=== PATIENT | female | born 1955 | race Caucasian/White ===

== ENCOUNTER → 2016-11-17 | Outpatient (CLI) | payer BC ==
[~2016-11-17] MED LIST: ASPCH81X PO; BIOT1CAP8 PO; CALC600T9 PO; CETI10TA10 PO; DILT-113 PO; ESTCR TOP; FLUO1TAB12 PO; LEVO25TA5 PO; MAGN1CAP2 PO; OMEG10007 PO; RIVA1TAB4 PO; SPR25 PO; TMB100 PO; TRET0.0522 TOP
[2016-11-25 14:19] LABS: ALTERNARIA CLASS 0; ALTERNARIA IGE <0.10 KU/L; ASPERG FUMIG CLASS 0; ASPERG FUMIG IGE <0.10 KU/L; BAHIA GRASS ASM CLASS 0/1; BAHIA GRASS IGE 0.17 KU/L; BERMUDA GRASS CLASS 0; BERMUDA GRASS IGE <0.10 KU/L; BIRCH CLASS 1; BLACK LOCUST CLASS 0; BLACK LOCUST IGE <0.35 kU/L (<0.35); CAT DANDER CLASS 0; CLADOSPORIUM HER CLASS 0; CLADOSPORIUM HER IGE <0.10 KU/L; COCKROACH CLASS 0; D. FARINAE CLASS 0; D. FARINAE IGE <0.10 KU/L; D. PTERONYSSINUS CLASS 0; D. PTERONYSSINUS IGE <0.10 KU/L; DOG DANDER CLASS 0; EGG MIX CLASS 0; EGG MIX IGE <0.10 KU/L; ELM CLASS 0; ENGLISH PLAN CLASS 0; ENGLISH PLAN IGE <0.10 KU/L; JOHNSON CLASS 0; JOHNSON IGE <0.10 KU/L; JUNE (KENTUCKY BLUE) CLASS 2; JUNE IGE 1.03 KU/L; LATEX CLASS 0; LATEX k UNITS/ML <0.10 KU/L; MAPLE (BOX ELDER) IGE <0.10 KU/L; MAPLE CLASS 0; MOUNTAIN CEDAR ASM CLASS 0; MOUNTAIN CEDAR IGE <0.10 KU/L; MUCOR CLASS 0; MUCOR IGE <0.10 KU/L; NETTLE CLASS 0; NETTLE IGE <0.10 KU/L; PENIC NOTATUM CLASS 0; PENIC NOTATUM IGE <0.10 KU/L; ROUGH PIGWEED CLASS 0; ROUGH PIGWEED IGE <0.10 KU/L; SHORT RAGWEED CLASS 0/1; SHORT RAGWEED IGE 0.32 KU/L; STEMPHY BOTRY CLASS 0; STEMPHY BOTRY IGE <0.10 KU/L; WHITE HICKORY ASM CLASS 0; WHITE HICKORY IGE <0.10 kU/L (<0.35); WHITE MULBERRY CLASS 0; WHITE MULBERRY IGE <0.10 KU/L
== END | disposition home or self-care (01) ==
LOC: C.LAB1850 10:39
PROVIDERS: ATTEND Internal Medicine Pulmonary Disease
DX: J30.9 Allergic rhinitis, unspecified (principal); Z88.7 Allergy status to serum and vaccine

== ENCOUNTER → 2016-11-19 | Outpatient (CLI) | payer BC ==
[2016-11-19 17:58] LABS: THYROID STIMULATING HORMONE 2.36 uIu/ml (0.300-4.500)
== END | disposition home or self-care (01) ==
LOC: C.LAB1850 16:19
PROVIDERS: ATTEND Internal Medicine Endocrinology, Diabetes & Metabolism
DX: E03.9 Hypothyroidism, unspecified (principal)

== ENCOUNTER 2017-04-14 10:31 | Inpatient (IN) | payer BC ==
[~2017-04-14] VITALS: Ht 165.1 cm; Wt 64.6 kg
[2017-04-14] VITALS (8 sets, daily range): BP systolic 88–128; BP diastolic 50–84; PULSE 53–115; TEMP 36.7–36.8; O2SAT 96–99; Ht 165.1 cm; Wt 64.6 kg
[~2017-04-14 10:31] MED LIST changes: -RIVA1TAB4 PO; -TMB100 PO; +TRET-55 TOP; -TRET0.0522 TOP
[2017-04-14] MEDS ORDERED: SODIUM CHLORIDE 0.9% 1000ML 1,000 ML IV STA ×2 (11:18→15:43)
[2017-04-14] MEDS ORDERED: DILTIAZEM HCL 5 MG/ML 5 ML VIAL IV STA ×2 (11:18→12:33)
--- NOTE | 2017-04-14 11:22 | EMERGENCY ROOM VISIT NOTE ---
History First contact with patient: 11:03 Chief Complaint: RAPID HEART RATE Stated Complaint: A-FIB Nursing Triage Summary: Patient c/o rapid heart rate that started this morning. Patient states became bradycardic this morning and almost passed out. History of Present Illness The patient is a 61 year old female who presents to the Emergency Room with complaints of irregular heartbeat. The patient reports a long-standing history of atrial fibrillation. She has had cardioversion and ablation 2. The patient states that this is the second time in 3 months that she has gone into A. fib. The patient states that it has been 36 hours since she felt her heart go into atrial fibrillation. She states that she has been very fatigued and short of breath. She states that she has also felt a pressure sensation into her neck. She states she has had several near syncopal episodes and several dizzy episodes. She states she has also had diarrhea with episodes of dizziness. She states that this morning she noticed an episode of her heart rate becoming very slow. She denies any true pain. She does have a history of hypothyroidism and takes levothyroxine. She has had a stress test over 10 years ago. She denies any earache, sore throat, cough, fever. She denies any abdominal pain or vomiting. She denies any extremity pain or swelling. Review of Systems A 10 system review of systems was completed with positives and pertinent negatives listed in the HPI. Past Medical/Surgical History Medical Problems: (1) Atrial fibrillation with RVR (2) Fungal toenail infection Family History Cancer Heart disease Social History Smoking Status: Never Smoker Drug Use: none Marital Status: Occupation Status: employed Current/Historical Medications Scheduled Aspirin (Aspirin Chewable), 81 MG PO QAM Biotin (Biotin), 1 CAP PO QAM Calcium Carbonate-Vitamin D (Calcium + D), 1 TAB PO QPM Cetirizine Hcl (Zyrtec), 10 MG PO QAM Diltiazem Hcl Ext Rel (Tiazac), 180 MG PO QAM Estradiol Vaginal (Estrace), 0.25 APPL TOP 2XWK Fish Oil ([place]-3), 1 CAP PO QAM Fluoxetine Hcl (Fluoxetine Hcl), 10 MG PO QPM Levothyroxine Sodium (Levothyroxine Sodium), 50 MCG PO DAILY Magnesium Oxide (Mg Supplement (Magnesium), 1 TAB PO DAILY Tretinoin (Tretinoin), 1 APPLN TOP HS Scheduled PRN Spironolactone (Spironolactone), 25 MG PO DAILY PRN for edema Allergies Coded Allergies: Flu Virus Vaccine (Verified Allergy, Unknown, THROAT SWELLING, 04/14/17) Ketamine (Verified Adverse Reaction, Intermediate, HALLUCINATIONS, NAUSEA , VOMITING, 04/14/17) PER JESSICA MAR Physical Exam Vital Signs Date Time Temp Pulse Resp B/P (MAP) Pulse Ox O2 Delivery O2 Flow Rate FiO2 04/14/17 14:02 106 20 94/78 97 Room Air 04/14/17 12:14 118 16 109/80 99 Room Air 04/14/17 11:44 119 04/14/17 11:01 100 Room Air 04/14/17 10:49 36.4 120 17 128/77 99 Room Air Physical Exam VITALS: Vitals are noted on the nurse's note and reviewed by myself. Vital signs stable. The patient is afebrile. She is tachycardic with heart rate 120 bpm. GENERAL: This is a 61-year-old female, in no acute distress, nondiaphoretic, well-developed well-nourished. SKIN: The skin was without rashes, erythema, edema, or bruising. There is no tenting of the skin. Capillary reflex less than 2 seconds. HEAD: Normocephalic atraumatic. EARS: The external ears are normal in appearance. EYES: Pupils equal round and reactive to light and accommodation. Conjunctivae without injection, sclerae without icterus. Extraocular movements intact. NOSE: Patent, turbinates without inflammation or discharge. MOUTH: Mucous membranes moist. Tonsils are not enlarged. Pharynx without erythema or exudate. Uvula midline. Airway patent. Tongue does not deviate. NECK: Supple without nuchal rigidity. No JVD. HEART: Fast rate, irregularly irregular. LUNGS: Clear to auscultation bilaterally without wheezes, rales or rhonchi. No retractions or accessory muscle use. ABDOMEN: Positive bowel sounds x 4. Soft, nontender, without masses or organomegaly. Hay sign negative. MUSCULOSKELETAL: No muscle atrophy, erythema, or edema noted. Full range of motion without joint tenderness in all extremities. No tenderness to palpation. Normal gait. Strength 5/5 throughout. NEURO: Patient was alert and oriented to person place and time. No focal neurological deficits. Medical Decision & Procedures ER Provider Diagnostic Interpretation: CHEST ONE VIEW PORTABLE CLINICAL HISTORY: palpitations cardiac arrhythmia COMPARISON STUDY: 03/25/2016 FINDINGS: The bones soft tissues and hemidiaphragms are normal. The cardiomediastinal silhouette is normal. The lungs are clear. The pulmonary vasculature is normal. IMPRESSION: Negative chest. Laboratory Results 04/14/17 11:05 Red Blood Count 5.20, Mean Corpuscular Volume 91.9, Mean Corpuscular Hemoglobin 31.2, Mean Corpuscular Hemoglobin Concent 33.9, Mean Platelet Volume 9.7, Neutrophils (%) (Auto) 69.8, Lymphocytes (%) (Auto) 20.9, Monocytes (%) (Auto) 8.2, Eosinophils (%) (Auto) 0.4, Basophils (%) (Auto) 0.4, Neutrophils # (Auto) 4.87, Lymphocytes # (Auto) 1.46, Monocytes # (Auto) 0.57, Eosinophils # (Auto) 0.03, Basophils # (Auto) 0.03 04/14/17 11:05 Test 04/14/17 11:05 04/14/17 12:45 White Blood Count 6.98 K/uL (4.8-10.8) Red Blood Count 5.20 M/uL (4.2-5.4) Hemoglobin 16.2 g/dL (12.0-16.0) Hematocrit 47.8 % (37-47) Mean Corpuscular Volume 91.9 fL (80-100) Mean Corpuscular Hemoglobin 31.2 pg (25-34) Mean Corpuscular Hemoglobin Concent 33.9 g/dl (32-36) Platelet Count 241 K/uL (130-400) Mean Platelet Volume 9.7 fL (7.4-10.4) Neutrophils (%) (Auto) 69.8 % Lymphocytes (%) (Auto) 20.9 % Monocytes (%) (Auto) 8.2 % Eosinophils (%) (Auto) 0.4 % Basophils (%) (Auto) 0.4 % Neutrophils # (Auto) 4.87 K/uL (1.4-6.5) Lymphocytes # (Auto) 1.46 K/uL (1.2-3.4) Monocytes # (Auto) 0.57 K/uL (0.11-0.59) Eosinophils # (Auto) 0.03 K/uL (0-0.5) Basophils # (Auto) 0.03 K/uL (0-0.2) RDW Standard Deviation 46.0 fL (36.4-46.3) RDW Coefficient of Variation 13.6 % (11.5-14.5) Immature Granulocyte % (Auto) 0.3 % Immature Granulocyte # (Auto) 0.02 K/uL (0.00-0.02) Prothrombin Time 11.6 SECONDS (9.0-12.0) Prothromb Time International Ratio 1.1 (0.9-1.1) Activated Partial Thromboplast Time 30.3 SECONDS (21.0-31.0) Partial Thromboplastin Ratio 1.2 Anion Gap 6.0 mmol/L (3-11) Est Creatinine Clear Calc Drug Dose 61.0 ml/min Estimated GFR () 83.9 Estimated GFR (Non- 72.4 BUN/Creatinine Ratio 22.7 (10-20) Calcium Level 9.6 mg/dl (8.5-10.1) Phosphorus Level 2.9 mg/dl (2.5-4.9) Magnesium Level 2.5 mg/dl (1.8-2.4) Total Bilirubin 0.4 mg/dl (0.2-1) Aspartate Amino Transf (AST/SGOT) 23 U/L (15-37) Alanine Aminotransferase (ALT/SGPT) 36 U/L (12-78) Alkaline Phosphatase 57 U/L (45-117) Total Creatine Kinase 64 U/L (26-192) Creatine Kinase MB 0.7 ng/ml (0.5-3.6) Creatine Kinase MB Ratio 1.1 (0-3.0) Troponin I < 0.015 ng/ml (0-0.045) Total Protein 7.6 gm/dl (6.4-8.2) Albumin 4.2 gm/dl (3.4-5.0) Globulin 3.4 gm/dl (2.5-4.0) Albumin/Globulin Ratio 1.2 (0.9-2) Thyroid Stimulating Hormone (TSH) 1.040 uIu/ml (0.300-4.500) Urine Color YELLOW Urine Appearance CLEAR (CLEAR) Urine pH 8.5 (4.5-7.5) Urine Specific [place] 1.012 (1.000-1.030) Urine Protein NEG (NEG) Urine Glucose (UA) NEG (NEG) Urine Ketones NEG (NEG) Urine Occult Blood NEG (NEG) Urine Nitrite NEG (NEG) Urine Bilirubin NEG (NEG) Urine Urobilinogen NEG (NEG) Urine Leukocyte Esterase NEG (NEG) Medications Administered Medications (Trade) Dose Ordered Sig/Camille Route Start Time Stop Time Status Last Admin Dose Admin Diltiazem HCl (Cardizem Inj) 10 mg NOW STAT IV 04/14/17 11:18 04/14/17 11:20 DC 04/14/17 11:32 10 MG Sodium Chloride 1,000 ml @ 999 mls/hr Q1H1M STAT IV 04/14/17 11:18 04/14/17 12:18 DC 04/14/17 11:31 999 MLS/HR Diltiazem HCl (Cardizem Inj) 20 mg NOW STAT IV 04/14/17 12:33 04/14/17 12:35 DC 04/14/17 12:48 20 MG Procedure The patient was monitored on a court manager. This revealed a persistent atrial fibrillation with rapid ventricular response. Her heart rate was anywhere from 110-130 bpm. ECG Indication: palpitations Rate (beats per minute): 118 Rhythm: atrial fibrillation Findings: no acute ischemic change Change: no significant change ED Course The patient was seen and examined. Previous visits were reviewed. The patient does not have fever or leukocytosis. She does not have any significant election light abnormalities. Magnesium is slightly elevated at 2.5. She does take a magnesium supplement. Cardiac enzymes were not elevated. TSH was within normal limits at 1.040. INR was 1.1. Urinalysis was negative. Chest x-ray does not reveal any acute abnormality. The patient was hydrated with normal saline She was given a 10 mg IV dose of Cardizem and the A. fib with RVR persisted She was then given a 20 mg IV dose of Cardizem and the atrial fibrillation with RVR persisted The patient has had refractory paroxysmal atrial fibrillation. She has felt herself in this rhythm for the last 36 hours. She took one dose of Xarelto last night but is not on regular anticoagulation. The patient was given 2 doses of Cardizem with no significant improvement in the right or rhythm. The above workup does not reveal any obvious cause of the atrial fibrillation. She does not seem to have an infectious process. Her TSH is within normal limits. The patient would benefit from further evaluation and management in the hospital. She would like to see Dr. Jean. The case was discussed with the hospitalist service and they will evaluate the patient. The case was discussed with Dr. Alvarado and he agrees with the assessment and treatment plan. Medication Reconciliation: I attest that I have personally reviewed the patient' s current medication list. Blood pressure screening: The patient was found to have normal blood pressure on screening and does not require follow-up Medical Decision DIFFERENTIAL DIAGNOSIS: Aortic dissection, myocarditis, pericarditis, cervical disc disease, costochondritis, herpes zoster, rib fracture, pleuritis, pneumonia , pulmonary embolus, tension pneumothorax, anxiety disorder, somatoform disorder , choledocholithiasis, status, esophagitis, esophageal spasm, esophageal reflux , esophageal rupture, pancreatitis, peptic ulcer disease, cardiac ischemia, ST elevation NE, acute coronary syndrome, arrhythmia, coronary artery vasospasm. vavular heart disease, coronary artery disease, among others. Impression Primary Impression: Atrial fibrillation with RVR Critical Care I have personally spent greater than 35 minutes of critical care time in the direct management of this patient. This includes bedside care, interpretation of diagnostic studies, and testing, discussion with consultants, patient, and family members, and other required patient management activities. This 30 minutes is in excess of all separately billable procedures. Departure Information Dispostion Admitted as an inpatient Condition FAIR Referrals Krissy Coronel M.D. (PCP) Patient Instructions [facility]
[2017-04-14 11:23] LABS: BASO % 0.4 %; BASO ABS # 0.03 K/uL (0-0.2); COMPLETE YES; EOS % 0.4 %; HEMATOCRIT 47.8 % (37-47); IG% 0.3 %; LYMPH % 20.9 %; LYMPH ABS # 1.46 K/uL (1.2-3.4); MEAN CELL VOLUME 91.9 fL (80-100); MEAN CORPUSCULAR HEMOGLOBIN 31.2 pg (25-34); MEAN CORPUSCULAR HGB CONC 33.9 g/dl (32-36); MEAN PLATELET VOLUME 9.7 fL (7.4-10.4); MONO % 8.2 %; NEUT % 69.8 %; PLATELET COUNT 241 K/uL (130-400); WHITE BLOOD COUNT 6.98 K/uL (4.8-10.8)
[2017-04-14 11:30] LABS: INR 1.1 (0.9-1.1); PARTIAL THROMBOPLASTIN RATIO 1.2; PROTHROMBIN TIME (PATIENT) 11.6 SECONDS (9.0-12.0)
[2017-04-14 11:32] LABS: ALT/SGPT 36 U/L (12-78); AST/SGOT 23 U/L (15-37); BLOOD UREA NITROGEN 19 mg/dl (7-18); BUN/CREATININE RATIO 22.7 (10-20); CALCIUM 9.6 mg/dl (8.5-10.1); CARBON DIOXIDE 29 mmol/L (21-32); CHLORIDE 106 mmol/L (98-107); CREATININE 0.86 mg/dl (0.60-1.20); GLUCOSE 97 mg/dl (70-99); MAGNESIUM 2.5 mg/dl (1.8-2.4); POTASSIUM 4.2 mmol/L (3.5-5.1); SODIUM 141 mmol/L (136-145)
[2017-04-14 11:43] LABS: ALB/GLOB RATIO 1.2 (0.9-2); ALKALINE PHOSPHATASE 57 U/L (45-117); CKMB/CK RATIO 1.1 (0-3.0)
--- NOTE | 2017-04-14 12:15 | DIAGNOSTIC IMAGING REPORT ---
CHEST ONE VIEW PORTABLE CLINICAL HISTORY: palpitations cardiac arrhythmia COMPARISON STUDY: 03/25/2016 FINDINGS: The bones soft tissues and hemidiaphragms are normal. The cardiomediastinal silhouette is normal. The lungs are clear. The pulmonary vasculature is normal. IMPRESSION: Negative chest. Electronically signed by: Gadiel Jorgensen M.D. 04/14/2017 12:13 PM Dictated Date/Time: 04/14/2017 12:13 PM
[2017-04-14] MEDS ORDERED: ONDANSETRON INJ 2 MG/ML 2 ML VIAL IV PRN (14:00)
[2017-04-14] MEDS ORDERED: MAGNESIUM HYDROXIDE SUSP 30 ML UDC PO PRN (14:00)
[2017-04-14] MEDS ORDERED: ALUMINUM/MAGNESIUM/SIMETH (MAALOX MAX) 30 ML UDC PO PRN (14:00)
[2017-04-14] MEDS ORDERED: POLYETHYLENE (MIRALAX) 17 GM PACK PO PRN (14:00)
[2017-04-14] MEDS ORDERED: NITROGLYCERIN 0.4 MG SL PER TAB CHARGE SL PRN (14:00)
[2017-04-14] MEDS ORDERED: ENOXAPARIN 30 MG/0.3 ML SYR SC SCH (14:00)
[2017-04-14] MEDS ORDERED: ACETAMINOPHEN 325 MG TAB PO PRN (14:00)
[2017-04-14] MEDS ORDERED: MoRPHine SULFATE 2 MG/ML CARP IV PRN (14:00)
[2017-04-14] MEDS ORDERED: DILTIAZEM BOLUS / DRIP IV STA (14:08)
[2017-04-14] MEDS ORDERED: METOPROLOL TARTRATE 1 MG/ML VIAL IV STA (14:08)
[2017-04-14 14:11] LABS: URINE APPEARANCE CLEAR (CLEAR); URINE BILIRUBIN NEG (NEG); URINE COLOR YELLOW; URINE NITRITE NEG (NEG); URINE PH 8.5 (4.5-7.5); URINE SPECIFIC GRAVITY 1.012 (1.000-1.030); UROBILINOGEN NEG (NEG); ZZUR CULT IF INDIC CLEAN CATCH NO
[2017-04-14] MEDS ORDERED: ESTRADIOL TOP SCH (14:15)
[2017-04-14] MEDS ORDERED: SPIRONOLACTONE 25 MG TAB PO PRN (14:15)
[2017-04-14 14:27] LABS: MANUAL MICROSCOPIC REQUIRED? NO; REVIEW REQ? NO
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
[2017-04-14] MEDS ORDERED: DILTIAZEM HCL INJ 125 MG in DEXTROSE 5% 100ML IV PRN (15:00)
[2017-04-14] MEDS ORDERED: METOPROLOL TARTRATE 1 MG/ML VIAL ONE (17:19)
[2017-04-14] MEDS: FLUOXETINE HCL 10 MG CAP PO SCH (20:00)
[2017-04-14] MEDS: CALCIUM 600MG + VIT D 400 IU TAB PO SCH (20:01)
[2017-04-14] MEDS: HEPARIN 25,000 UNIT/500ML D5W 500 ML IV PRN (20:52)
[2017-04-14] MEDS ORDERED: HEPARIN IV BOLUS 5,000 UNIT in SYRINGE 0 ML IV ONE (21:00)
[2017-04-14] MEDS ORDERED: METOPROLOL TARTRATE 25 MG TAB PO ONE (21:00)
[2017-04-15] VITALS (17 sets, daily range): BP systolic 73–105; BP diastolic 49–68; PULSE 61–123; TEMP 36.5–36.9; O2SAT 85–97
[2017-04-15] MEDS: SODIUM CHLORIDE 0.9% 1000ML 1,000 ML IV SCH ×2 (03:36→15:42)
[2017-04-15 03:42] LABS: BASO % 0.3 %; BASO ABS # 0.02 K/uL (0-0.2); COMPLETE YES; EOS % 2.3 %; HEMATOCRIT 40.7 % (37-47); IG% 0.2 %; LYMPH % 43.7 %; LYMPH ABS # 2.84 K/uL (1.2-3.4); MEAN CELL VOLUME 93.3 fL (80-100); MEAN CORPUSCULAR HEMOGLOBIN 30.3 pg (25-34); MEAN CORPUSCULAR HGB CONC 32.4 g/dl (32-36); MEAN PLATELET VOLUME 9.4 fL (7.4-10.4); MONO % 7.7 %; NEUT % 45.8 %; PLATELET COUNT 209 K/uL (130-400); RED BLOOD COUNT 4.36 M/uL (4.2-5.4)
[2017-04-15 04:02] LABS: CREATININE 0.72 mg/dl (0.60-1.20); MAGNESIUM 2.1 mg/dl (1.8-2.4); POTASSIUM 4.1 mmol/L (3.5-5.1)
[2017-04-15 04:05] LABS: PARTIAL THROMBOPLASTIN RATIO 3.7
[2017-04-15 04:12] LABS: PHOSPHORUS 3.8 mg/dl (2.5-4.9)
[2017-04-15] MEDS: LEVOTHYROXINE 50 MCG TAB PO SCH (05:35)
[2017-04-15] MEDS: HEPARIN 25,000 UNIT/500ML D5W 500 ML IV PRN ×2 (05:39→23:05)
[2017-04-15] MEDS: CETIRIZINE HCL 10 MG TAB PO SCH (08:10)
[2017-04-15] MEDS: METOPROLOL TARTRATE 25 MG TAB PO SCH ×2 (08:10→21:35)
[2017-04-15] MEDS ORDERED: ASPIRIN 81 MG ECTAB PO SCH (09:00)
[2017-04-15] MEDS ORDERED: MAGNESIUM OXIDE PO SCH (09:00)
--- NOTE | 2017-04-15 11:03 | Progress Note ---
Subjective Date of Service: Apr 15, 2017. Subjective Pt evaluation today including: conversation w/ patient, physical exam, chart review, lab review, review of studies, review of inpatient medication list Voiding: no voiding problems Still feeling racing heart Denied chest pain no other complaining Problem List Medical Problems: (1) Rapid atrial fibrillation Status: Acute Review of Systems Constitutional: No fever, No chills, No sweats, No weight loss, No weakness, No fatigue, No problem reported Eyes: No worsening of vision, No eye pain, No redness, No discharge, No diplopia ENT: No hearing loss, No unusual epistaxis, No nasal symptoms, No sore throat, No tinnitus, No dental problems, No trouble swallowing Respiratory: No cough, No sputum, No wheezing, No shortness of breath, No dyspnea on exertion, No dyspnea at rest, No hemoptysis Cardiac: + palpitations, No chest pain, No orthopnea, No PND, No edema, No claudication Abdomen: No pain, No nausea, No vomiting, No diarrhea, No constipation Musculoskeletal: No joint pain, No muscle pain, No swelling, No calf pain Female : No dysuria, No urinary frequency, No hematuria, No incontinence, No abnormal vaginal bleeding, No vaginal discharge Neurologic: No memory loss, No paralysis, No weakness, No numbness/tingling, No vertigo, No balance problems Psychiatric: No depression symptoms, No anhedonism, No anxiety, No insomnia, No substance abuse Heme: No abnormal bleeding/bruising, No clotting problems, No swollen lymph nodes, No night sweats Endo: No fatigue, No excessive thirst, No excessive urination Skin: No rash, No itch, No new/changing skin lesions, No color change, No bleeding Objective Vital Signs Date Time Temp Pulse Resp B/P (MAP) Pulse Ox O2 Delivery O2 Flow Rate FiO2 04/15/17 10:17 78 18 92/59 (70) 95 Room Air 04/15/17 09:45 85 18 92/58 (69) 85 Room Air 04/15/17 09:30 36.5 97 20 96/60 (72) 94 04/15/17 09:15 99 100/55 (70) 96 04/15/17 09:00 95 100/64 (76) 97 04/15/17 08:45 105 101/60 (74) 97 04/15/17 08:00 94 Room Air 04/15/17 07:05 36.5 120 19 100/68 (79) 95 Room Air 04/15/17 04:56 Room Air 04/15/17 04:27 36.8 117 18 105/67 (80) 96 Room Air 04/15/17 00:58 114 101/67 (78) 04/15/17 00:01 Room Air 04/14/17 23:43 36.7 72 18 93/57 (69) 96 Room Air 04/14/17 21:50 53 95/57 (70) 04/14/17 21:35 60 93/60 (71) 04/14/17 21:20 62 99/64 (76) 04/14/17 20:58 59 88/50 (63) 04/14/17 20:00 Room Air 04/14/17 19:23 36.8 109 18 120/84 (96) 96 04/14/17 18:14 36.8 115 18 128/81 (97) 99 Room Air 04/14/17 18:06 116 16 112/84 97 04/14/17 17:39 119 116/84 04/14/17 17:15 119 16 116/84 99 Room Air 04/14/17 16:04 120 18 107/79 98 Room Air 04/14/17 14:30 119 17 92/76 98 Room Air 04/14/17 14:30 98 Room Air 04/14/17 14:02 106 20 94/78 97 Room Air 04/14/17 12:14 118 16 109/80 99 Room Air 04/14/17 11:44 119 Physical Exam General Appearance: WD/WN, no apparent distress Eyes: normal inspection, PERRL, EOMI, sclerae normal ENT: normal ENT inspection, hearing grossly normal, pharynx normal Neck: supple, no adenopathy, thyroid normal, no JVD, no carotid bruits, trachea midline Respiratory/Chest: chest non-tender, normal breath sounds, no respiratory distress, no accessory muscle use, + decreased breath sounds Cardiovascular: no edema, no gallop, no JVD, no murmur, + irregularly irregular (heart rate at 110) Abdomen: normal bowel sounds, non tender, soft, no organomegaly, no pulsatile mass Extremities: normal range of motion, non-tender, normal inspection, no pedal edema, no calf tenderness, normal capillary refill, pelvis stable Neurologic/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: 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, no motor/sensory deficits, alert, normal mood/affect, oriented x 3, + abnormal cerebellar tests Skin: normal color, warm/dry, no rash Lymphatic: no adenopathy Laboratory Results Last 24 Hours Test 04/14/17 11:05 04/14/17 12:45 04/15/17 03:17 White Blood Count 6.98 K/uL 6.50 K/uL Red Blood Count 5.20 M/uL 4.36 M/uL Hemoglobin 16.2 g/dL 13.2 g/dL Hematocrit 47.8 % 40.7 % Mean Corpuscular Volume 91.9 fL 93.3 fL Mean Corpuscular Hemoglobin 31.2 pg 30.3 pg Mean Corpuscular Hemoglobin Concent 33.9 g/dl 32.4 g/dl Platelet Count 241 K/uL 209 K/uL Mean Platelet Volume 9.7 fL 9.4 fL Neutrophils (%) (Auto) 69.8 % 45.8 % Lymphocytes (%) (Auto) 20.9 % 43.7 % Monocytes (%) (Auto) 8.2 % 7.7 % Eosinophils (%) (Auto) 0.4 % 2.3 % Basophils (%) (Auto) 0.4 % 0.3 % Neutrophils # (Auto) 4.87 K/uL 2.98 K/uL Lymphocytes # (Auto) 1.46 K/uL 2.84 K/uL Monocytes # (Auto) 0.57 K/uL 0.50 K/uL Eosinophils # (Auto) 0.03 K/uL 0.15 K/uL Basophils # (Auto) 0.03 K/uL 0.02 K/uL RDW Standard Deviation 46.0 fL 47.0 fL RDW Coefficient of Variation 13.6 % 13.8 % Immature Granulocyte % (Auto) 0.3 % 0.2 % Immature Granulocyte # (Auto) 0.02 K/uL 0.01 K/uL Prothrombin Time 11.6 SECONDS Prothromb Time International Ratio 1.1 Activated Partial Thromboplast Time 30.3 SECONDS 97.3 SECONDS Partial Thromboplastin Ratio 1.2 3.7 Sodium Level 141 mmol/L 145 mmol/L Potassium Level 4.2 mmol/L 4.1 mmol/L Chloride Level 106 mmol/L 111 mmol/L Carbon Dioxide Level 29 mmol/L 27 mmol/L Anion Gap 6.0 mmol/L 7.0 mmol/L Blood Urea Nitrogen 19 mg/dl 15 mg/dl Creatinine 0.86 mg/dl 0.72 mg/dl Est Creatinine Clear Calc Drug Dose 61.0 ml/min 72.9 ml/min Estimated GFR () 83.9 104.0 Estimated GFR (Non- 72.4 89.8 BUN/Creatinine Ratio 22.7 21.0 Random Glucose 97 mg/dl 87 mg/dl Calcium Level 9.6 mg/dl 9.0 mg/dl Phosphorus Level 2.9 mg/dl 3.8 mg/dl Magnesium Level 2.5 mg/dl 2.1 mg/dl Total Bilirubin 0.4 mg/dl Aspartate Amino Transf (AST/SGOT) 23 U/L Alanine Aminotransferase (ALT/SGPT) 36 U/L Alkaline Phosphatase 57 U/L Total Creatine Kinase 64 U/L Creatine Kinase MB 0.7 ng/ml Creatine Kinase MB Ratio 1.1 Troponin I < 0.015 ng/ml Total Protein 7.6 gm/dl Albumin 4.2 gm/dl Globulin 3.4 gm/dl Albumin/Globulin Ratio 1.2 Thyroid Stimulating Hormone (TSH) 1.040 uIu/ml Urine Color YELLOW Urine Appearance CLEAR Urine pH 8.5 Urine Specific [place] 1.012 Urine Protein NEG Urine Glucose (UA) NEG Urine Ketones NEG Urine Occult Blood NEG Urine Nitrite NEG Urine Bilirubin NEG Urine Urobilinogen NEG Urine Leukocyte Esterase NEG Assessment and Plan 61 years old female admitted to 04/14/2017 because of recurrent A fib with RVR. Per report , usually happens during sleep. failed previous ablation twice recurrent A Fib A. fib with rapid ventricular response: Stable Cardiac enzyme troponin was negative 1 Continue Cardizem drip Continue heparin drip Follow-up cardiology input Hypothyroidism: TSH was normal Possible clinically suspected NIR, I told her to follow-up with PCP Plan: Continue B fred Continue Cardizem drip continue home meds Follow-up cardiology input GI and DVT prophylaxis Discussed with patient and answered all questions Continued [facility] stay due to: multiple IV medications needed Discharge planning: home
[2017-04-15 11:54] LABS: PARTIAL THROMBOPLASTIN RATIO 2.1
[2017-04-15] MEDS ORDERED: ENOXAPARIN 30 MG/0.3 ML SYR SC SCH (14:00)
--- NOTE | 2017-04-15 20:08 | CARDIOLOGY CONSULTATION ---
DATE OF CONSULTATION: 04/15/2017 REFERRING PHYSICIAN: Francesca Michelle MD CHIEF COMPLAINT: Atrial flutter. HISTORY OF PRESENT ILLNESS: Mrs. Irene Yanez is a 61-year-old woman with a known history of atrial arrhythmia and previously documented to include both atrial fibrillation and atrial flutter. The patient last underwent an ablation for atrial flutter in 2016. Approximately 3 days ago, the patient noticed at 11 p.m. the onset of rapid heartbeat associated with some symptoms of dizziness. She notes that she was in a tachycardia and due to the mild nature of her symptoms monitored herself over the course of the next several hours. Following day, the patient did report for work where she did not feel well. Her symptoms primarily consisted of generalized weakness and a sense of lightheadedness. The patient thought that the rhythm would terminate spontaneously, but the following morning found herself to still be in a tachycardia and presented to [facility] for an additional evaluation. There, she was discovered to have atrial flutter with a rapid ventricular response. The patient was started on diltiazem infusion as well as heparin and [facility] to the [facility]. Over the course of the past 24 hours, the patient's symptoms waxed and waned in severity. This includes symptoms of a tachycardia and mild lightheadedness. The patient does not have symptoms of chest discomfort or breathing difficulty. At the time of the interview, she claims to be comfortable and has not even noticed sense of palpitations. In general, the patient is a healthy individual who is accustomed to routine activity. She participates in exercise at [employer] 2-3 times per week. She has not noticed any significant reduction in her exercise capacity and denies exertional symptoms such as chest pain or dyspnea. She will occasionally have episodes of palpitations and rapid heartbeat. This happens perhaps every few months. During these episodes, she has mild dizziness, but often times the episodes will terminate within the define time. Generally less than 24 hours. PAST MEDICAL HISTORY: 1. Atrial fibrillation. The patient had the onset of palpitations around 2014 and eventually had documented atrial flutter. She also had documented atrial fibrillation. The patient underwent atrial flutter fibrillation in 2014 and again in 2016 after recurrence. 2. Melanoma. 3. Seasonal allergies. 4. Thyroiditis. PAST SURGICAL HISTORY: Includes: 1. Excision of a melanoma and a breast lumpectomy. 2. Tonsillectomy. 3. Vaginal hysterectomy. FAMILY HISTORY: Not consistent with premature coronary disease. 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 She denies significant alcohol use and a lifelong nonsmoker. OUTPATIENT MEDICATIONS: Include diltiazem 180 mg daily, duloxetine, Synthroid, spironolactone and allergies medicines on a p.r.n. basis. MEDICAL ALLERGIES: INCLUDE INFLUENZA VIRUS VACCINE AND KETAMINE. REVIEW OF SYSTEMS: A complete review of systems was performed and the pertinent positives noted in the history of present illness, the remainder being negative. The patient does not report constitutional symptoms recently such as fevers or chills. Allergies appear to be well controlled. She has not had any difficulty with eating or bowel movements. PHYSICAL EXAMINATION: GENERAL: The patient not appearing to have any acute distress. She is a pleasant individual who is alert and oriented. Mood and affect appeared normal. She answered all questions appropriately. VITAL SIGNS: Include blood pressure 95/61 and her pulse is 102. HEENT: Sclerae are anicteric. Pupils are equal, reactive to light and accommodation. Extraocular movements were intact. Palpation of submandibular region did not reveal any significant lymphadenopathy. The carotids are palpable bilaterally. There are no bruits on auscultation. I did not appreciate any jugular venous distention. There was no evidence of thyromegaly. NEUROLOGIC: Examination revealed cranial nerves to be intact. EXTREMITIES: Evaluation of both lungs revealed good air movement. There were no rales, wheezes or rhonchi. She had normal respiratory effort without use of accessory muscles. CARDIAC: Revealed her to be in an irregular rhythm which was also rapid. I do not appreciate any murmurs on examination however and the PMI was not markedly displaced. ABDOMEN: Soft and nontender. EXTREMITIES: Evaluation of both wrists revealed radial pulses that were equal in intensity. There is no evidence of cyanosis or clubbing. Evaluation of lower extremities did not reveal any significant peripheral edema. SKIN: I do not appreciate any rashes on examination today. LABORATORY STUDIES: Included a white cell count of 6.5, hemoglobin of 13.2, a platelet count of 209, sodium is 145, potassium is 4.1, BUN was 15, creatinine was 0.72. Single view chest x-ray was obtained at the time of admission which did not reveal any evidence of acute cardiopulmonary disease. Serial EKGs were also obtained which revealed the patient to be in atrial flutter with a rapid ventricular response. The patient also had a left anterior fascicular block and borderline R-wave progression of precordial leads. ASSESSMENT AND PLAN: Atrial flutter: Has recurrent atrial flutter despite to attempt at a standard cavotricuspid isthmus ablation. The patient is also known to have atrial fibrillation. Currently, she has some symptoms related to mild hypotension and dizziness associated with rapid heartbeat and possibly the diltiazem infusion. Generally speaking, however, the arrhythmia is well tolerated. We did discuss options for treatment to include an additional attempt at ablation to include both cavotricuspid isthmus ablation as well as pulmonary vein isolation. This would represent a more complete option for her given the known history of atrial fibrillation as well. Alternatively, the patient could initiate medical therapy with antiarrhythmic medications. She has normal left ventricular systolic function and no history of coronary disease. Given her structurally normal heart, she seemed to be a reasonable candidate for flecainide as an outpatient. Other options would be sotalol or dofetilide. These will require inpatient administration for several days. At this point, however, the patient will require a cardioversion. We discussed the procedure in detail and degree of her anticoagulation is in question. She did take a Xarelto within 24 hours of onset of her symptoms and heparin infusion was initiated at the time of her presentation. Overall, she appears to be low risk for arrhythmia. However, I cannot be 100% incontinent that she was therapeutically anticoagulated at all points during this episode. Therefore, I think it would be reasonable to perform a TE prior to cardioversion in order to exclude the presence of any thrombosis in left atrial appendage. I described the risks, benefits, alternatives of the procedure to the patient. We will plan on proceeding tomorrow. [facility]
[2017-04-15] MEDS: FLUOXETINE HCL 10 MG CAP PO SCH (21:34)
[2017-04-15] MEDS: CALCIUM 600MG + VIT D 400 IU TAB PO SCH (21:35)
[2017-04-16] VITALS (10 sets, daily range): BP systolic 90–122; BP diastolic 60–82; PULSE 67–122; TEMP 36.4–36.9; O2SAT 95–98
[2017-04-16 04:54] LABS: BASO % 0.6 %; BASO ABS # 0.03 K/uL (0-0.2); COMPLETE YES; EOS % 3.8 %; HEMATOCRIT 39.3 % (37-47); IG% 0.2 %; LYMPH % 44.5 %; LYMPH ABS # 2.13 K/uL (1.2-3.4); MEAN CELL VOLUME 92.9 fL (80-100); MEAN CORPUSCULAR HEMOGLOBIN 30.3 pg (25-34); MEAN CORPUSCULAR HGB CONC 32.6 g/dl (32-36); MEAN PLATELET VOLUME 9.6 fL (7.4-10.4); MONO % 7.5 %; NEUT % 43.4 %; PLATELET COUNT 192 K/uL (130-400); RED BLOOD COUNT 4.23 M/uL (4.2-5.4); WHITE BLOOD COUNT 4.79 K/uL (4.8-10.8)
[2017-04-16 05:15] LABS: BUN/CREATININE RATIO 30.8 (10-20); CREATININE 0.71 mg/dl (0.60-1.20); PARTIAL THROMBOPLASTIN RATIO 2.2; POTASSIUM 3.8 mmol/L (3.5-5.1)
[2017-04-16] MEDS: LEVOTHYROXINE 50 MCG TAB PO SCH (05:42)
[2017-04-16] MEDS: SODIUM CHLORIDE 0.9% 1000ML 1,000 ML IV SCH (05:42)
[2017-04-16] MEDS ORDERED: PROPOFOL IV EMULSION 10 MG/ML 20 ML VIAL IV ONE (07:49)
[2017-04-16] MEDS ORDERED: LIDOCAINE HCL 2% 2 ML VIAL (20MG/ML) ONE (07:50)
--- NOTE | 2017-04-16 08:14 | Anesthesiology Progress Note ---
Anesthesia Post Op Note Date & Time Apr 16, 2017 at 08:14 Vital Signs Pain Intensity: 0 Vital Signs Past 12 Hours Date Time Temp Pulse Resp B/P (MAP) Pulse Ox O2 Delivery O2 Flow Rate FiO2 04/16/17 08:10 72 16 95/60 97 Room Air 04/16/17 08:08 71 16 105/66 97 Nasal Cannula 6 04/16/17 08:06 71 16 90/62 97 Nasal Cannula 6 04/16/17 08:05 117 16 118/82 97 Nasal Cannula 6 04/16/17 08:02 122 18 122/74 (90) 97 Room Air 04/16/17 06:49 36.9 118 14 100/67 95 Room Air 04/16/17 04:00 Room Air 04/16/17 03:36 36.9 118 14 100/67 (78) 95 Room Air 04/16/17 00:00 Room Air 04/15/17 23:19 36.8 120 17 99/63 (75) 94 Room Air 04/15/17 21:30 121 84/58 (67) Notes Mental Status: alert / awake / arousable, participated in evaluation Pt Amnestic to Procedure: Yes Nausea / Vomiting: adequately controlled Pain: adequately controlled Airway Patency, RR, SpO2: stable & adequate BP & HR: stable & adequate Hydration State: stable & adequate Anesthetic Complications: no major complications apparent
--- NOTE | 2017-04-16 08:23 | CARDIOVERSION ---
DATE OF OPERATION: 04/16/2017 PROCEDURE PERFORMED: Electrical cardioversion. 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 Butch Jean. INDICATIONS: Ms. Irene Yanez is a 61-year-old woman with a history of atrial flutter and atrial fibrillation who presented to [facility] with atrial flutter and rapid ventricular response. Based on symptoms associated with the arrhythmia she was felt to be a good candidate for cardioversion. PROCEDURE IN DETAIL: The patient was informed of the risks, benefits and alternatives to the intended procedure. She understood such and wished to proceed. She was taken to the cardiac catheterization suite holding area where she underwent a general anesthetic administered by the anesthesiology service. Once appropriately anesthetized the patient underwent cardioversion using 30 joules delivered in a biphasic fashion. This returned her to sinus rhythm. Subsequent to the procedure the patient was noted to be neurologically intact. There were no immediate complications. IMPRESSION: Successful cardioversion from atrial flutter to normal sinus rhythm. I attest to the content of the Intraoperative Record and any orders documented therein. Any exception s are noted below.
[2017-04-16] MEDS: CETIRIZINE HCL 10 MG TAB PO SCH (08:57)
[2017-04-16] MEDS ORDERED: FLECAINIDE ACETATE 100 MG TAB PO SCH (10:00)
[2017-04-16] MEDS: METOPROLOL TARTRATE 25 MG TAB PO SCH (10:00)
[2017-04-16] MEDS ORDERED: RIVAROXABAN 20 MG TAB PO ONE (10:00)
--- NOTE | 2017-04-16 11:45 | CARDIOLOGY PROGRESS NOTE ---
DATE: 04/16/2017 SUBJECTIVE: This morning, Mrs. Yanez underwent cardioversion successfully back to sinus rhythm. She is currently feeling well. She denies significant dizziness and noticed that her heart rhythm is now normal. PHYSICAL EXAMINATION: GENERAL: She was alert and oriented. Her mood and affect appeared normal. CURRENT VITAL SIGNS: Include blood pressure 107/71 with a pulse of 69. LUNGS: Clear. CARDIOVASCULAR: Revealed her to be in a regular rhythm. NEUROLOGIC: She appeared to be intact. LABORATORY STUDIES: Today include a white cell count of 4.7, a hemoglobin of 12.8, a platelet count of 192. Sodium is 145, potassium is 3.8, BUN was 22, creatinine was 0.7. ASSESSMENT AND PLAN: 1. Atrial flutter. The patient was successfully cardioverted this morning. We discussed several options yesterday during the initial consult to include medical prophylaxis as well as referral for catheter based therapy. At this point, we will start her on flecainide 50 mg twice daily due to the interaction between Prozac and flecainide. The patient will also need to be maintained on anticoagulation for 30 days and I suggested Xarelto 20 mg daily. She has started this medication currently. We will stop her heparin 2 hours after her Xarelto dose. She is to stay on 20 mg of Xarelto daily for 30 days. The patient should also stay on diltiazem at her outpatient dose. She will stay on flecainide 50 mg twice daily. Her metoprolol can be discontinued. This is not required for her current medical therapy. Also during administration of Xarelto, the patient should not take aspirin as well. The patient should follow up in cardiology clinic in a period of 2-3 weeks' time.
[2017-04-16] MEDS ORDERED: TMB100 PO (12:59)
[2017-04-16] MEDS ORDERED: RIVA1TAB4 PO (12:59)
--- NOTE | 2017-04-16 13:03 | Discharge Instructions ---
Discharge Instructions Date of Service Apr 16, 2017. Admission Reason for Admission: Atrial Fibrillation With Rvr Discharge Discharge Diagnosis / Problem: afib with rvr s/p cardio version Discharge Goals Goal(s): Decrease discomfort, Improve function, Increase independence, Improve disease control, Improve nutritional status, Learn about illness, Diagnostic testing, Therapeutic intervention, Prevent Disease Progression, Specific goals Activity Recommendations Activity Limitations: resume your previous activity . Instructions / Follow-Up Instructions / Follow-Up you have recurrent Atrial flutter, was successfully cardioverted this morning. your new medication includes flecainide 50 mg twice daily you need to be on anticoagulation for 30 days with Xarelto 20 mg daily. during administration of Xarelto, you should not take aspirin you need to follow up in cardiology clinic in a period of 2-3 weeks - you need to follow up with your primary care physician in 1 week, - take medication as instructed, never overdose or any misuse, or take with alcohol, because misuse of medicine may cause organ damage or , call your primary care physician if have questions of medicaitons. - call your primary care physician OR go to local emergency room if has any fever/chill, chest pain, shortness of breathing, nausea/vomiting/abdominal pain , facial droop/slurry speech/local weakness, or if has any questions. - fall precaution - diet as instructed - you should understand that it is important to follow up the above instruction , and "not following the above instruction" may cause delayed or missed care of your medical conditions which may cause permanent organ damage and even . Current Hospital Diet Patient's current hospital diet: Regular Diet Discharge Diet Recommended Diet: AHA Diet (Heart Healthy) Procedures Procedures Performed: cardioversion Pending Studies Studies pending at discharge: no Medical Emergencies . Who to Call and When: Medical Emergencies: If at any time you feel your situation is an emergency, please call 911 immediately. . Non-Emergent Contact Non-Emergency issues call your: Primary Care Provider, Manager Medical Affairs . . "Provider Documentation" section prepared by Mike Garcia. . VTE Core Measure Inpt VTE Proph given/why not?: Unfractionated heparin SQ
--- NOTE | 2017-04-16 13:12 | Discharge Summary ---
Discharge Summary Date of Service Apr 16, 2017. Discharge Summary Admission Date: Apr 14, 2017 at 14:05 Discharge Date: Apr 16, 2017 Discharge Disposition: Home Principal Diagnosis: Atrial flutter successfully cardioverted Problems/Secondary Diagnoses: recurrent Atrial flutter Procedures: Atrial flutter, was successfully cardioverted Consultations: feed weigher Medication Reconciliation New Medications: Rivaroxaban (Xarelto) 20 Mg Tab 1 TAB PO DAILY for 30 Days, #30 TAB 11 Refills Flecainide Acetate (Flecainide Acetate) 100 Mg Tab 50 MG PO Q12 for 30 Days, #30 TAB Continued Medications: Aspirin (Aspirin Chewable) 81 Mg Chew 81 MG PO QAM Biotin (Biotin) 1 Mg Cap 1 CAP PO QAM Calcium Carbonate-Vitamin D (Calcium + D) 1 Tab Tab 1 TAB PO QPM Cetirizine Hcl (Zyrtec) 10 Mg Tab 10 MG PO QAM, TAB Diltiazem Hcl Ext Rel (Tiazac) 180 Mg Capcr 180 MG PO QAM, CAP Estradiol Vaginal (Estrace) 0.1 Mg/Gm Cre 0.25 APPL TOP 2XWK Fish Oil ([place]-3) 1 Ea Cap 1 CAP PO QAM, CAP Fluoxetine Hcl (Fluoxetine Hcl) 20 Mg Tab 10 MG PO QPM Levothyroxine Sodium (Levothyroxine Sodium) 25 Mcg Tab 50 MCG PO DAILY for 90 Days, #180 TAB 3 Refills Magnesium Oxide (Mg Supplement (Magnesium) 400 Mg Cap 1 TAB PO DAILY Spironolactone (Spironolactone) 25 Mg Tab 25 MG PO DAILY PRN for edema for 30 Days, #10 Tretinoin (Tretinoin) 0.05 % Cre 1 APPLN TOP HS for 30 Days, #20 GM 3 Refills Discharge Exam doing well, no c/o tolerated diet Review of Systems: Constitutional: No fever, No chills, No sweats, No weight loss, No weakness , No fatigue, No problem reported Eyes: No worsening of vision, No eye pain, No redness, No discharge, No diplopia, No problem reported ENT: No hearing loss, No unusual epistaxis, No nasal symptoms, No sore throat, No tinnitus, No dental problems, No trouble swallowing, No problem reported Respiratory: No cough, No sputum, No wheezing, No shortness of breath, No dyspnea on exertion, No dyspnea at rest, No hemoptysis, No problem reported Cardiovascular: No chest pain, No orthopnea, No PND, No edema, No claudication, No palpitations, No problem reported Abdomen: No pain, No nausea, No vomiting, No diarrhea, No constipation, No GI bleeding, No problem reported Genitourinary - Female: No dysuria, No urinary frequency, No urinary urgency , No urinary incontinence, No urinary retention, No hematuria, No dysmenorrhea, No menorrhagia, No metrorrhagia, No rash, No vaginal bleeding, No vaginal discharge, No vaginal itching, No vulvodynia, No , No problem reported Neurologic: No memory loss, No paralysis, No weakness, No numbness/tingling , No vertigo, No balance problems, No problem reported Psychiatric: No depression symptoms, No anhedonism, No anxiety, No insomnia , No substance abuse, No problem reported Endocrine: No fatigue, No excessive thirst, No excessive urination, No problem reported Hematologic / Lymphatic: No abnormal bleeding/bruising, No clotting problems , No swollen lymph nodes, No night sweats, No problem reported Integumentary: No rash, No itch, No new/changing skin lesions, No color change, No bleeding, No problem reported Physical Exam: General Appearance: WD/WN, no apparent distress Eyes: normal inspection, PERRL ENT: normal ENT inspection, hearing grossly normal Neck: supple, no adenopathy, thyroid normal Respiratory/Chest: chest non-tender, lungs clear, normal breath sounds Cardiovascular: regular rate, rhythm, no edema, no gallop Abdomen / GI: normal bowel sounds, non tender, soft, no organomegaly Extremities: normal inspection, no calf tenderness Neurologic/Psychiatric: drug safety assistant II-XII nml as tested, no motor/sensory deficits , alert Hospital Course 61 years old female admitted to 04/14/2017 because of recurrent A fib with RVR. Per report , usually happens during sleep. failed previous ablation twice recurrent A Fib A. fib with rapid ventricular response: Stable Cardiac enzyme troponin was negative 1 was on Cardizem drip was on heparin drip Hypothyroidism: TSH was normal Possible clinically suspected NIR, I told her to follow-up with PCP Plan: was successfully cardioverted this morning by feed weigher , per recs this will start her on flecainide 50 mg twice daily due to the interaction between Prozac and flecainide. maintained on anticoagulation for 30 days and cardio suggested Xarelto 20 mg daily for 30 days. pt will stay on flecainide 50 mg twice daily. H also during the administration of Xarelto, the patient should not take aspirin The patient should follow up in cardiology clinic in a period of 2-3 nstructions / Follow-Up you have recurrent Atrial flutter, was successfully cardioverted this morning. your new medication includes flecainide 50 mg twice daily you need to be on anticoagulation for 30 days with Xarelto 20 mg daily. during administration of Xarelto, you should not take aspirin you need to follow up in cardiology clinic in a period of 2-3 weeks - you need to follow up with your primary care physician in 1 week, - take medication as instructed, never overdose or any misuse, or take with alcohol, because misuse of medicine may cause organ damage or , call your primary care physician if have questions of medicaitons. - call your primary care physician OR go to local emergency room if has any fever/chill, chest pain, shortness of breathing, nausea/vomiting/abdominal pain , facial droop/slurry speech/local weakness, or if has any questions. - fall precaution - diet as instructed - you should understand that it is important to follow up the above instruction , and "not following the above instruction" may cause delayed or missed care of your medical conditions which may cause permanent organ damage and even . Total Time Spent: Less than 30 minutes This includes examination of the patient, discharge planning, medication reconciliation, and communication with other providers. Discharge Instructions Please refer to the electronic Patient Visit Report (Discharge Instructions) for additional information. Additional Copies To Krissy Coronel M.D.; Butch Jean MD
== END 2017-04-16 16:37 | disposition home or self-care (01) | DRG 310 ==
LOC: C.EDB 10:32 → C.2T 14:05 → EDBEDREQ 14:12 → ENRESERV 15:54 → CANRESERV 15:54 → ENRESERV 16:01 → C.2T 04-15 13:14
PROVIDERS: ADMIT Internal Medicine; ATTEND Hospitalist
PROC: 5A2204Z Restoration of Cardiac Rhythm, Single (ICD-10-PCS; principal; 2017-04-16 07:23)
DX: I48.92 Unspecified atrial flutter (principal); I48.91 Unspecified atrial fibrillation; E03.9 Hypothyroidism, unspecified; G47.33 Obstructive sleep apnea (adult) (pediatric); E83.42 Hypomagnesemia; E83.39 Other disorders of phosphorus metabolism; F39 Unspecified mood [affective] disorder; M79.89 Other specified soft tissue disorders; Z79.899 Other long term (current) drug therapy; Z79.82 Long term (current) use of aspirin; Z91.09 Other allergy status, other than to drugs and biological substances; Z79.890 Hormone replacement therapy

== ENCOUNTER → 2017-09-30 | Outpatient (CLI) | payer BC ==
[~2017-09-30] MED LIST changes: +RIVA1TAB4 PO; +TMB100 PO
[2017-09-30 10:40] LABS: CALCIUM 9.2 mg/dl (8.5-10.1)
[2017-09-30 10:55] LABS: THYROID STIMULATING HORMONE 1.23 uIu/ml (0.300-4.500)
== END | disposition home or self-care (01) ==
LOC: C.LAB1850 09:05
PROVIDERS: ATTEND Internal Medicine Endocrinology, Diabetes & Metabolism
DX: E03.9 Hypothyroidism, unspecified (principal); M85.80 Other specified disorders of bone density and structure, unspecified site; E06.3 Autoimmune thyroiditis

== ENCOUNTER → 2017-11-10 | Outpatient (CLI) | payer OTHER | END | disposition home or self-care (01) | LOC: C.MAMM 09:36 | PROVIDERS: ATTEND Internal Medicine Endocrinology, Diabetes & Metabolism | DX: M85.89 Other specified disorders of bone density and structure, multiple sites (principal) ==

== ENCOUNTER → 2018-02-05 | Outpatient (CLI) | payer OTHER | END | disposition home or self-care (01) | LOC: C.PATHSPEC 13:39 | PROVIDERS: ATTEND Dermatology | DX: D23.5 Other benign neoplasm of skin of trunk (principal); L81.4 Other melanin hyperpigmentation; D23.72 Other benign neoplasm of skin of left lower limb, including hip ==

== ENCOUNTER → 2018-03-02 | Outpatient (CLI) | payer OTHER | END | disposition home or self-care (01) | LOC: C.PATHSPEC 14:10 | PROVIDERS: ATTEND Dentist Endodontics | DX: K04.7 Periapical abscess without sinus (principal) ==